=== PATIENT | male | born 1960 | race Caucasian/White ===

== ENCOUNTER 2018-11-15 13:08 | Day surgery (SDC) | payer MEDICAID ==
[~2018-11-15] VITALS: Ht 177.8 cm; Wt 80.5 kg
[~2018-11-15 13:08] MED LIST: SODIUM CHLORIDE 0.9% 1,000 ML IV ONE
[2018-11-15] MEDS ORDERED: PROPOFOL 1% 20 ML VIAL IVP ONE (13:09)
[2018-11-15] MEDS: SODIUM CHLORIDE 0.9% 1,000 ML IV ONE (13:42)
[2018-11-15] MEDS ORDERED: OMEP20 PO (13:45)
== END 2018-11-15 17:25 | disposition home or self-care (01) ==
LOC: SURGERY 13:08
PROVIDERS: ATTEND Internal Medicine Gastroenterology
DX: K63.89 Other specified diseases of intestine (principal); K64.1 Second degree hemorrhoids; B18.2 Chronic viral hepatitis C; F17.210 Nicotine dependence, cigarettes, uncomplicated
CPT/HCPCS: 45380; 88305; C1769; J2704; J7030